=== PATIENT | male | born 1990 | race Caucasian/White ===

== ENCOUNTER 2023-10-22 17:38 | Emergency (ER) | payer MEDICAID ==
[~2023-10-22] VITALS: Ht 177.8 cm; Wt 100.0 kg
[2023-10-22 17:52] VITALS: O2SAT 100
[2023-10-22] MEDS ORDERED: CYCL10TA21 MT (19:35)
[2023-10-22 20:00] VITALS: BP 129/82; PULSE 88; RESP 16; TEMP 98.9
== END 2023-10-22 20:00 | disposition home or self-care (01) ==
LOC: ER 18:07
DX: M54.50 Low back pain, unspecified (principal); F19.90 Other psychoactive substance use, unspecified, uncomplicated; Z90.49 Acquired absence of other specified parts of digestive tract
CPT/HCPCS: 99283